=== PATIENT | female | born 2000 | race African-American/Black ===

== ENCOUNTER 2021-05-27 14:26 | Emergency (ER) | payer BC, OTHER ==
--- OUTSIDE RECORDS SUMMARY | 2021-05-27 14:29 | XMS REPORT | Continuity of Care Document ---
:2000 Author Organization [facility] t Address [address] [place] [address] Care Team Providers Name Role Phone SABIHA, A Primary Care Physician Unavailable RAFFY Attending Clinician Unavailable Payers Payer Name Policy Type Policy Number Effective Date Expiration Date S josue [facility] - [id number] 2018 00:00:00 OUT OF STATE Problems This patient has no known problems. Allergies, Adverse Reactions, Alerts Allergy Allergy Status Severity Reaction(s) Onset Inactive Treating Comm ents Source Name Type Date Date Clinician NO KNOWN Drug Active [facility] ALLERGIE Class [facility] Medications This patient has no known medications. Procedures This patient has no known procedures. Encounters Start End Encounter Admission Attending Care Care Encounter Source Date/Time Date/Time Type Type Clinicians Facility Department ID 2021-05-08 2021-05-08 [id number]00 10[facility]00[facility]00 [id number] 2021-05-08 2021-05-08 [facility] [id number] [facility] 10:00:00 10:00:00 TON [facility] Results This patient has no known results.
[2021-05-27] MEDS ORDERED: NA CHLORIDE 0.9% 1,000 ML ONE (16:22)
[2021-05-27] MEDS ORDERED: ONDANSETRON 4 MG/2 ML VIAL ONE (16:22)
[2021-05-27 16:28] LABS: Absolute Lymphocytes (CBC) 0.7 K/uL (0.7-4.9); Basophils % 0.4 % (0-1.3); Hematocrit 38.3 % (36.0-45.0); Lymphocytes % 4.6 % (15.3-44.8); MPV 9.9 fL (7.6-11.3); RBC Red Blood Cell Count 5.02 M/uL (3.86-4.86)
[2021-05-27 16:47] LABS: ALT/SGPT 26 U/L (12-78); AST/SGOT 18 U/L (15-37); Albumin 3.2 g/dL (3.4-5.0); Alkaline Phosphatase 103 U/L (45-117); BUN Blood Urea Nitrogen 9 mg/dL (7-18); Bicarbonate 24 mmol/L (21-32); Bilirubin Direct < 0.1 mg/dL (0-0.2); Bilirubin Total 0.5 mg/dL (0.2-1.0); Glucose Level 98 mg/dL (74-106); Lipase 225 U/L (73-393); Protein, Total 7.3 g/dL (6.4-8.2); Sodium Level 139 mmol/L (136-145)
[2021-05-27 16:55] LABS: Urine Blood Negative (Negative); Urine Glucose Negative (Negative); Urine Protein Negative (Negative)
--- NOTE | 2021-05-27 17:34 | RAD REPORT ---
EXAM DESCRIPTION: CT - Abdomen Pelvis W Contrast - 05/27/2021 5:19 pm CLINICAL HISTORY: Abdominal pain COMPARISON: none. TECHNIQUE: Computed axial tomography of the abdomen pelvis was obtained. 100 cc Isovue-300 was admin istered intravenously. Oral contrast was not requested which limits evaluation of bowel. All CT scans are performed using dose optimization technique as appropriate and may include automated exposure control or mA/KV adjustment according to patient size. FINDINGS: Minimal bilateral pleural effusions The liver, spleen, adrenal and kidneys appear unremarkable. Pancreatic head is borderline enlarged. The density is normal. There is no evidence of diverticulitis. IMPRESSION: Minimal bilateral pleural effusions Borderline enlargement of the pancreatic head of questionable significance. It is recommended that th e patient a followup abdominal ultrasound in 1 month for re-evaluation
--- NOTE | 2021-05-27 19:23 | RAD REPORT ---
EXAM DESCRIPTION: US - Abdomen Exam Limited - 05/27/2021 7:08 pm CLINICAL HISTORY: Abdominal pain. COMPARISON: None. FINDINGS: The gallbladder wall is not thickened. A gallstone is not seen. The biliary tree is normal caliber. Pancreas is upper limits normal size homogeneous echotexture IMPRESSION: Unremarkable gallbladder ultrasound.
--- NOTE | 2021-05-27 19:57 | ER ---
Nurse's Notes [facility] Name: Cady Rodriguez Age: 20 yrs Sex: Female : 2000 Arrival Date: 05/27/2021 Time: 14:31 Bed 20 Private MD: Diagnosis: Upper abdominal pain, unspecified Presentation: 05/27 14:51 Chief complaint: Patient states: Pt states she has been nauseous, vomiting, and having jh5 multiple fainting spells x1 month. Pt experienced miscarriage in January and has not had a period since the miscarriage. Pt points to her epigastric area and states its a nagging pain. Pt has been prescribed "stomach medicine and antidepressant" but is unable to recall the names for either medications. Coronavirus screen: Vaccine status: Patient reports receiving the 2nd dose of the covid vaccine. Client denies travel out of the [place] in the last 14 days. Ebola Screen: Patient negative for fever greater than or equal to 101.5 degrees Fahrenheit, and additional compatible Ebola Virus Disease symptoms Patient denies exposure to infectious person. Patient denies travel to an Ebola-affected area in the 21 days before illness onset. No symptoms or risks identified at this time. Initial Sepsis Screen: Does the patient meet any 2 criteria? HR > 90 bpm. Does the patient have a suspected source of infection? No. Patient's initial sepsis screen is negative. Risk Assessment: Do you want to hurt yourself or someone else? Patient reports no desire to harm self or others. Onset of symptoms was April 2021. 14:51 Method Of Arrival: Ambulatory [facility] 14:51 Acuity: SONI 3 jh5 Triage Assessment: 14:54 General: Appears in no apparent distress. well groomed, well nourished, Behavior is jh5 calm, cooperative, appropriate for age. Pain: Complains of pain in diaphragm Pain does not radiate. GI: Abdomen is non-distended. 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 - Social history:: Smoking status: Patient denies any tobacco usage or history of. Screenin:55 Abuse screen: Denies threats or abuse. Denies injuries from another. Nutritional 5 screening: No deficits noted. Tuberculosis screening: No symptoms or risk factors identified. Fall Risk None identified. Assessment: 16:00 Reassessment: No changes from previously documented assessment. Patient and/or family ll1 updated on plan of care and expected duration. Pain level reassessed. Patient is alert, oriented x 3, equal unlabored respirations, skin warm/dry/pink. 17:00 Reassessment: No changes from previously documented assessment. Patient and/or family ll1 updated on plan of care and expected duration. Pain level reassessed. Patient is alert, oriented x 3, equal unlabored respirations, skin warm/dry/pink. 18:00 Reassessment: No changes from previously documented assessment. Patient and/or family ll1 updated on plan of care and expected duration. Pain level reassessed. Patient is alert, oriented x 3, equal unlabored respirations, skin warm/dry/pink. 19:00 Reassessment: No changes from previously documented assessment. Patient and/or family ll1 updated on plan of care and expected duration. Pain level reassessed. Patient is alert, oriented x 3, equal unlabored respirations, skin warm/dry/pink. 20:02 GI: Bowel sounds present X 4 quads. ld1 Vital Signs: 14:51 BP 121 / 84; Pulse 99; Resp 18; Temp 98.6; Pulse Ox 98% ; Weight 83.91 kg; Height 5 ft. jh5 6 in. (167.64 cm); 14:51 Body Mass Index 29.86 (83.91 kg, 167.64 cm) 5 ED Course: 14:31 Patient arrived in ED. ds1 14:54 Triage completed. 5 14:55 Arm band placed on right wrist. jh5 14:56 Patient has correct armband on for positive identification. 5 14:56 Inserted saline lock: 20 gauge in right antecubital area, using aseptic technique. 5 15:31 Frantz Smith PA is PHCP. [facility] 15:31 Luis Alfredo Grayson MD is Attending Physician. m 15:34 Bradford Real, LESLIE is Primary Nurse. ll1 15:35 Patient placed in an exam room, on a stretcher. ll1 17:19 CT Abd/Pelvis - IV Contrast Only In Process Unspecified. EDMS 19:08 US Abdomen Limited In Process Unspecified. EDMS 19:56 Saige Yanez MD is Referral Physician. m 20:02 No provider procedures requiring assistance completed. IV discontinued, intact, ld1 bleeding controlled, No redness/swelling at site. Administered Medications: 16:29 Drug: Zofran (Ondansetron) 4 mg Route: IVP; Site: right antecubital; ll1 18:06 Follow up: Response: No adverse reaction 1 16:29 Drug: NS 0.9% 1000 ml Route: IV; Rate: 1 bolus; Site: right antecubital; ll1 18:05 Follow up: Response: No adverse reaction; IV Status: Completed infusion; IV Intake: ll1 1000ml Intake: 18:05 IV: 1000ml; Total: 1000ml. 1 Outcome: 19:56 Discharge ordered by MD. [facility] 20:02 Discharged to home ambulatory, with family. ld1 20:02 Condition: stable 20:02 Discharge instructions given to patient, family, Instructed on discharge instructions, follow up and referral plans. medication usage, Demonstrated understanding of instructions, follow-up care, medications, Prescriptions given X 3. 20:03 Patient left the ED. ld1 Signatures: Dispatcher [employer] EDMS Frantz Smith PA PA jmm Sanford, Demi ds1 Bradford Real RN RN ll1 China Pepe RN RN ld1 Myla Grimaldo RN RN jh5 Corrections: (The following items were deleted from the chart) 14:55 14:50 Chief complaint: cameron barnes
--- NOTE | 2021-05-27 19:57 | EDPHYS ---
Physician Documentation [facility] Name: Cady Rodriguez Age: 20 yrs Sex: Female : 2000 Arrival Date: 05/27/2021 Time: 14:31 Bed 20 Private MD: ED Physician Luis Alfredo Grayson HPI: 05/27 19:54 This 20 yrs old Black Female presents to ER via Ambulatory with complaints of Abdominal jmm Pain. 19:54 The patient presents with abdominal pain. Onset: The symptoms/episode began/occurred jmm gradually, 1 month(s) ago. The symptoms radiate to Associated signs and symptoms: Pertinent positives: nausea and vomiting. The symptoms are described as achy. Modifying factors: The symptoms are alleviated by nothing, the symptoms are aggravated by nothing. The patient has not experienced similar symptoms in the past. 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 - Social history:: Smoking status: Patient denies any tobacco usage or history of. ROS: 19:54 Constitutional: Negative for fever, chills, and weight loss, Cardiovascular: Negative jmm for chest pain, palpitations, and edema, Respiratory: Negative for shortness of breath, cough, wheezing, and pleuritic chest pain. 19:54 Abdomen/GI: Positive for abdominal pain, nausea and vomiting. 19:54 All other systems are negative. Exam: 19:54 Constitutional: This is a well developed, well nourished patient who is awake, alert, jmm and in no acute distress. Head/Face: atraumatic. Eyes: EOMI, no conjunctival erythema appreciated ENT: Moist Mucus Membranes Neck: Trachea midline, Supple Chest/axilla: Normal chest wall appearance and motion. Cardiovascular: Regular rate and rhythm. No edema appreciated Respiratory: Normal respirations, no respiratory distress appreciated 19:54 Back: Normal ROM Skin: General appearance color normal MS/ Extremity: Moves all extremities, no obvious deformities appreciated, no edema noted to the lower extremities Neuro: Awake and alert, normal gait Psych: Behavior is normal, Mood is normal, Patient is cooperative and pleasant 19:54 Abdomen/GI: Inspection: abdomen appears normal, Bowel sounds: normal, Palpation: soft, mild abdominal tenderness, in the epigastric area. Vital Signs: 14:51 BP 121 / 84; Pulse 99; Resp 18; Temp 98.6; Pulse Ox 98% ; Weight 83.91 kg; Height 5 ft. jh5 6 in. (167.64 cm); 14:51 Body Mass Index 29.86 (83.91 kg, 167.64 cm) 5 MDM: 15:44 Patient medically screened. [facility] 19:55 Data reviewed: vital signs, nurses notes. Counseling: I had a detailed discussion with skylar the patient and/or guardian regarding: the historical points, exam findings, and any diagnostic results supporting the discharge/admit diagnosis, lab results, radiology results, the need for outpatient follow up, to return to the emergency department if symptoms worsen or persist or if there are any questions or concerns that arise at home. ED course: Patient states feeling much better. Advised to follow-up with her principal trainer for close evaluation. Patient otherwise given strict return precautions. Patient understood agrees plan of care.. 05/27 16:02 Order name: Basic Metabolic Panel; Complete Time: 16:52 [facility] 05/27 16:02 Order name: CBC with Diff; Complete Time: 16:34 [facility] 05/27 16:02 Order name: Hepatic Function; Complete Time: 16:52 [facility] 05/27 16:02 Order name: Lipase; Complete Time: 16:52 [facility] 05/27 16:02 Order name: SARS-COV-2 RT PCR (Document "Date of Onset" if Symptomatic); Complete Time: [facility] 17:47 05/27 16:55 Order name: Urine Dipstick-Ancillary; Complete Time: 16:55 [facility] 05/27 16:02 Order name: IV Saline Lock; Complete Time: 16:05 [facility] 05/27 16:02 Order name: Labs collected and sent; Complete Time: 16:05 [facility] 05/27 16:02 Order name: CT Abd/Pelvis - IV Contrast Only; Complete Time: 17:42 [facility] 05/27 16:02 Order name: Urine Dipstick-Ancillary (obtain specimen); Complete Time: 16:05 [facility] 05/27 17:02 Order name: Urine --Ancillary (enter results); Complete Time: 17:42 05/27 17:43 Order name: US Abdomen Limited; Complete Time: 19:31 [facility] 05/27 16:02 Order name: Urine Test (obtain specimen); Complete Time: 16:05 [facility] Administered Medications: 16:29 Drug: Zofran (Ondansetron) 4 mg Route: IVP; Site: right antecubital; ll1 18:06 Follow up: Response: No adverse reaction 1 16:29 Drug: NS 0.9% 1000 ml Route: IV; Rate: 1 bolus; Site: right antecubital; ll1 18:05 Follow up: Response: No adverse reaction; IV Status: Completed infusion; IV Intake: ll1 1000ml Disposition: 05/28 10:32 Co-signature as Attending Physician, Luis Alfredo Grayson MD I agree with the assessment and neli plan of care. Disposition Summary: 05/27/21 19:56 Discharge Ordered Location: Home [facility] Condition: Stable [facility] Diagnosis - Upper abdominal pain, unspecified [facility] Followup: [facility] - With: Saige Yanez MD - When: 2 - 3 days - Reason: Recheck today's complaints, Continuance of care, Re-evaluation by your physician Discharge Instructions: - Discharge Summary Sheet [facility] - Abdominal Pain, Adult jm - Clear Liquid Diet, Adult [facility] Forms: - Medication Reconciliation Form [facility] - Thank You Letter [facility] - Antibiotic Education [facility] - Prescription Opioid Use [facility] Prescriptions: - ondansetron 4 mg Oral tablet,disintegrating - place 1 tablet by TRANSLINGUAL route every 4-6 hours; 20 tablet; Refills: 0, [facility] Product Selection Permitted - Carafate 1 gram Oral Tablet - take 1 tablet by ORAL route 4 times per day take on an empty stomach, beginning jmm on waking and last dose at bedtime; 100 tablet; Refills: 0, Product Selection Permitted - dicyclomine 20 mg Oral Tablet - take 1 tablet by ORAL route 4 times per day; 30 tablet; Refills: 0, Product [facility] Selection Permitted Signatures: Dispatcher [employer] Luis Alfredo Silva MD MD cha Mickail, Joel, PA PA jmm Lewis, Lynsay, RN RN ll1 Myla Grimaldo RN RN jh5
[2021-05-27 20:17] VITALS: BP 121/84; TEMP 98.6; O2SAT 98
== END 2021-05-27 20:03 | disposition home or self-care (01) ==
LOC: ER 14:26
DX: R10.10 Upper abdominal pain, unspecified (principal); R11.2 Nausea with vomiting, unspecified; Z20.822 Contact with and (suspected) exposure to COVID-19
CPT/HCPCS: 96361; 85025; 80048; 36415; 81025; 80076; 81003; 83690; 74177; 76705; 96374; 99284; U0003; Q9967; J7030; J2405